=== PATIENT | female | born 1990 | race Caucasian/White ===

== ENCOUNTER → 2017-02-22 | Outpatient (CLI) | payer MEDICAID, OTHER ==
[~2017-02-22] MED LIST: ASPI81TA81; TUMS500C CHEW; ZANTTAB11; ZOFR4TAB PO
== END ==
LOC: HPND 13:55
PROVIDERS: ATTEND Obstetrics & Gynecology
DX: O09.291 Supervision of pregnancy with other poor reproductive or obstetric history, first trimester (principal); O09.211 Supervision of pregnancy with history of pre-term labor, first trimester
CPT/HCPCS: 76801

== ENCOUNTER → 2017-03-20 | Outpatient (CLI) | payer MEDICAID | LOC: HPND 09:29 | PROVIDERS: ATTEND Obstetrics & Gynecology | DX: O09.291 Supervision of pregnancy with other poor reproductive or obstetric history, first trimester (principal); O09.211 Supervision of pregnancy with history of pre-term labor, first trimester; O99.211 Obesity complicating pregnancy, first trimester | CPT/HCPCS: 36416; 76813 ==

== ENCOUNTER → 2017-04-25 | Outpatient (CLI) | payer MEDICAID | LOC: HPND 09:18 | PROVIDERS: ATTEND Obstetrics & Gynecology | DX: O09.522 Supervision of elderly multigravida, second trimester (principal); O09.292 Supervision of pregnancy with other poor reproductive or obstetric history, second trimester | CPT/HCPCS: 76811 ==

== ENCOUNTER 2017-04-30 11:27 | Emergency (ER) | payer MEDICAID ==
[~2017-04-30 11:27] MED LIST changes: -ASPI81TA81; -TUMS500C CHEW; -ZANTTAB11
[2017-04-30 11:38] VITALS: RESP 18; TEMP 98.1
[2017-04-30 11:40] VITALS: BP 114/57; PULSE 67
--- NOTE | 2017-04-30 11:46 | PD ---
HPI Chief Complaint Decreased movement. Date Seen: Apr 30, 2017 Travel History International Travel<30 Days: No Contact w/Intl Traveler<30Days: No History of Present Illness HPI Patient is a 26 year old at 19 weeks gestation who presents today for decreased movement. She has not been feeling the baby move as much today as usual. She denies any vaginal bleeding or discharge, no gush or leaking of fluid. No contractions. care with [facility]. History Past Medical History Medical History: Denies Significant Hx Obstetric History Obstetric History s/p x 2 1 full term 1 at 35 weeks gestation, severe preeclampsia 3 spontaneous abortions Past Surgical History Surgical History: No Previous Surgery Family History Family History: Negative Social History Alcohol Use: No Tobacco Use: No Substance Abuse: No Allergies-Medications (Allergen,Severity, Reaction): Coded Allergies: Sulfa (Verified Allergy, Severe, Hives, SOB, 04/03/17) "BREAK OUT, CANT BREATHE" Latex (Unverified Allergy, Mild, Rash, 04/03/17) Home Meds Active Scripts Ondansetron (Zofran)4 Mg Tab4 Mg PO Q8HR PRN (NAUSEA OR VOMITING) #30 TAB Ref 2 Prov:Rach Johnson 04/03/17 Review of Systems Except as stated in HPI: all other systems reviewed are Neg General / Constitutional: No: Fever, Chills Eyes: No: Blurred Vision, Visual changes HENT: No: Lightheadedness Respiratory: No: Short of Breath Gastrointestinal: No: Abdominal Pain Genitourinary: No: Pelvic Pain, Discharge, Vaginal Bleeding Musculoskeletal: No: Edema Neurologic: No: Headache Physical Exam Narrative GENERAL: Well-nourished, well-developed patient. SKIN: Warm and dry. HEAD: Normocephalic and atraumatic. EYES: No scleral icterus. No injection or drainage. ENT: No nasal drainage noted. Mucous membranes pink. Airway patent. NECK: Supple, trachea midline. No JVD. CARDIOVASCULAR: Regular rate and rhythm without murmurs, gallops, or rubs. RESPIRATORY: Breath sounds equal bilaterally. No accessory muscle use. BREASTS: Bilateral exam showed no masses , no retractions, no nipple discharge. ABDOMEN/GI: Abdomen soft, non-tender, bowel sounds present, no rebound, no guarding Gravid to 19 weeks size GENITOURINARY: FHT's: 140-150 EXTREMITIES: No cyanosis or edema. BACK: Nontender without obvious deformity. No CVA tenderness. NEUROLOGICAL: Awake and alert. Motor and sensory grossly within normal limits. Normal speech. Data Data Vital Signs Reviewed: Yes Orders Vital Signs (Adult) .ON ADMISSION (04/30/17 11:36) ^ Labor Status (04/30/17 11:36) MDM Medical Record Reviewed: Yes Narrative Course / MDM 26 year old at 19 weeks gestation. 1. IUP- FHT 140-150, reassuring. 2. Decreased movement- expected at this gestational age, counseling and education provided regarding expectations of movement at this gestational age. Bedside US shows movement, reassuring. dw Dr. Shaw Diagnosis Diagnosis: Primary Impression: Decreased movement Qualified Code: O36.8120 - Decreased movement, second trimester, not applicable or unspecified fetus Additional Impression: 19 weeks gestation of Disposition: DISCHARGE HOME Condition: Stable Kaya Adams MD R2 Apr 30, 2017 11:46
--- NOTE | 2017-04-30 12:08 | PD ---
History of Present Illness Date Seen: Apr 30, 2017 History of Present Illness 19 wks IUP with dec FM FHT --125 US- 19 wk IUP ,+ CM , nl AFV , ant placenta, baby active on scan Imp -normal fetus moving well , pt just not feeling it at times Bravo Shaw II, MD Apr 30, 2017 12:07
[2017-05-01] MEDS ORDERED: ZANTTAB11 (10:30)
[2017-05-01] MEDS ORDERED: ASPI81TA81 (10:30)
[2017-05-01] MEDS ORDERED: TUMS500C CHEW (10:30)
== END 2017-04-30 12:11 | disposition home or self-care (01) ==
LOC: HOBED 11:27
DX: O36.8120 Decreased fetal movements, second trimester, not applicable or unspecified (principal); Z3A.19 19 weeks gestation of pregnancy
CPT/HCPCS: 99281

== ENCOUNTER → 2017-05-25 | Outpatient (CLI) | payer MEDICAID ==
[~2017-05-25] MED LIST changes: +ASPI81TA81; +TUMS500C CHEW; +ZANTTAB11
== END ==
LOC: HPND 10:05
PROVIDERS: ATTEND Obstetrics & Gynecology
DX: O35.1XX0 Maternal care for (suspected) chromosomal abnormality in fetus, not applicable or unspecified (principal); O09.292 Supervision of pregnancy with other poor reproductive or obstetric history, second trimester; O99.212 Obesity complicating pregnancy, second trimester; E66.01 Morbid (severe) obesity due to excess calories; Z68.41 Body mass index [BMI] 40.0-44.9, adult
CPT/HCPCS: 76816

== ENCOUNTER 2017-06-10 13:54 | Emergency (ER) | payer MEDICAID ==
[~2017-06-10] VITALS: Ht 152.4 cm; Wt 97.5 kg
[2017-06-10 14:11] VITALS: BP 132/73; PULSE 95
[2017-06-10 14:15] VITALS: RESP 18
[2017-06-10] MEDS ORDERED: LACTATED RINGER'S 1000 ML INJ 1,000 ML IV SCH (14:27)
--- NOTE | 2017-06-10 14:34 | PD ---
HPI Chief Complaint ctx Date Seen: Jun 10, 2017 Time Seen: 14:25 Travel History International Travel<30 Days: No Contact w/Intl Traveler<30Days: No Known Affected Area: No History of Present Illness HPI 26y/o , IUP at 24.6 records reviewed. PNC complicated by h/o PTD, IOL for preeclampsia at 34w (records indicate 34-35w), h/o " labor" with prior but delivery after IOL; slightly elevated PTT-LA, Low NAMRATA-A Patient presents c/o onset of ctx this morning at 7:30-8am after waking up today. She reports ctx onset at about every 6 minutes when she started having them, now every 3-4 min at the time of presentation. She denies any LOF or VB. She reports good FM. There were no aggravating or alleviating factors and no attempted treatments. She reports the last she had intercourse was 4d ago. Para: 2 : 6 Miscarriage: 3 : 0 History Past Medical History Narrative Medical Preeclampsia Obstetric History Obstetric History FT x1 PTD x1 SAB x3 Past Surgical History Narrative Surgical Denies Family History Narrative Family History DM Social History Alcohol Use: No Tobacco Use: No Substance Abuse: No Allergies-Medications (Allergen,Severity, Reaction): Coded Allergies: Sulfa (Verified Allergy, Severe, Hives, SOB, 05/30/17) "BREAK OUT, CANT BREATHE" Latex (Unverified Allergy, Mild, Rash, 05/30/17) Home Meds Reported Medications Calcium Carbonate (Antacid) (Tums)500 Mg [id number] Mg CHEW QID PRN (HEARTBURN) Ref 0 05/01/17 Aspirin (Aspir-81)81 Mg Tabdr 05/01/17 Discontinued Reported Medications Ranitidine HCl (Zantac 75)75 Mg Tablet 05/01/17 Discontinued Scripts Ondansetron (Zofran)4 Mg Tab4 Mg PO Q8HR PRN (NAUSEA OR VOMITING) #30 TAB Ref 2 Prov:Rach Johnson 04/03/17 Review of Systems Except as stated in HPI: all other systems reviewed are Neg Gastrointestinal: Abdominal Pain (ROS negative except HPI) Physical Exam Narrative GENERAL: Well-nourished, well-developed patient. SKIN: Warm and dry. HEAD: Normocephalic and atraumatic. EYES: No scleral icterus. No injection or drainage. ENT: No nasal drainage noted. Mucous membranes pink. Airway patent. NECK: Supple, trachea midline. No JVD. CARDIOVASCULAR: Regular rate and rhythm without murmurs, gallops, or rubs. RESPIRATORY: Breath sounds equal bilaterally. No accessory muscle use. BREASTS: Bilateral exam showed no masses , no retractions, no nipple discharge. ABDOMEN/GI: Abdomen soft, non-tender, bowel sounds present, no rebound, no guarding Gravid GENITOURINARY: External Genitalia: intact and normal in appearance BUS glands: [nl] Cervix: [grossly normal, no cervical/vaginal masses, physiologic d/c, normal rugae] Dilatation: [closed] SVE remained closed/thick/high and 1420, 1620, and 1800 Effacement: [thick] Station: [high] Presentation: [posterior] Membranes: [intact] Uterine Contractions: [-] FHT's: Category: [1] Baseline: [145-150], reassuring and appropriate for gestational age EXTREMITIES: No cyanosis or edema. BACK: Nontender without obvious deformity. No CVA tenderness. NEUROLOGICAL: Awake and alert. Motor and sensory grossly within normal limits. Five out of 5 muscle strength in all muscle groups. Normal speech. ROM: grossly normal ROM, gait, muscle strength Data Data Vital Signs Reviewed: Yes MDM Plan A/P: 26y/o 1. IUP at 24.6 2. ctx: no evidence of PTL, CL 5.3cm and FFN negative; no cervical change management facilitator prolonged observation of nearly 4h and no change in CL since prior US at 23.6 (5.1cm). patient reports ctx have spaced out since arriving s/p IVF and terbutaline. Strict labor precautions given. 3. wellbeing: reassuring FHR, appropriate for gestational age, FKC daily. 4. h/o preeclampsia: no evidence of preeclampsia today, preeclampsia precautions 5. h/o PTD at 34-35w for preeclampsia 6. morbid obesity 7. Slightly elevated PTT-LA: continue baby ASA and 2g CA as previously recommended by [facility] 8. Low NAMRATA-A 9. F/U with primary ob in 2-3d or sooner if needed Diagnosis Diagnosis: Primary Impression: 24 weeks gestation of Additional Impressions: contractions labor in second trimester Disposition: 01 DISCHARGE HOME Condition: Good Patient Instructions: Abdominal Pain in (ED), Labor (ED), Early Labor Signs (ED), Movement (ED) Rach Delacruz MD Jun 10, 2017 14:34
[2017-06-10] MEDS ORDERED: TERBUTALINE INJ 1 MG/ML AMP ONE (14:55)
[2017-06-10 15:11] VITALS: TEMP 98.2
[2017-06-10 15:23] LABS: BACTERIA, URINE RARE /hpf; BLOOD, URINE NEG (NEG); COMMENT (UR) CULT NOT INDICATED; CULTURE IF INDICATED CULT NOT INDICATED; GLUCOSE,URINE NEG (NEG); KETONE, URINE 10 mg/dL (NEG); NITRITE,URINE NEG (NEG); SQUAMOUS EPITHELIAL CELL URINE 9 /hpf (0-5); URINE COLOR YELLOW (YELLW/STRAW)
[2017-06-10] MEDS ORDERED: TERBUTALINE INJ 1 MG/ML AMP SQ PRN ×3 (16:30→17:30)
[2017-06-29] MEDS ORDERED: AMOX500T PO (11:08)
== END 2017-06-10 18:26 | disposition home or self-care (01) ==
LOC: HOBED 13:54
DX: O60.02 Preterm labor without delivery, second trimester (principal); Z3A.24 24 weeks gestation of pregnancy
CPT/HCPCS: 76815; 76817; 81001; 82731; 96360; 96361; 96372; 99285; J3105; J7120

== ENCOUNTER → 2017-06-22 | Outpatient (CLI) | payer MEDICAID ==
[~2017-06-22] MED LIST changes: +AMOX500T PO; -ZANTTAB11; -ZOFR4TAB PO
== END ==
LOC: HPND 08:05
PROVIDERS: ATTEND Obstetrics & Gynecology
DX: O35.1XX0 Maternal care for (suspected) chromosomal abnormality in fetus, not applicable or unspecified (principal); O99.212 Obesity complicating pregnancy, second trimester; E66.01 Morbid (severe) obesity due to excess calories; Z68.1 Body mass index [BMI] 19.9 or less, adult; Z3A.26 26 weeks gestation of pregnancy
CPT/HCPCS: 76816

== ENCOUNTER 2017-06-27 14:10 | Emergency (ER) | payer MEDICAID ==
[~2017-06-27 14:10] MED LIST changes: -AMOX500T PO
--- NOTE | 2017-06-27 14:36 | PD ---
HPI Chief Complaint Abdominal pain/Nausea and vomiting Date Seen: Jun 27, 2017 Travel History International Travel<30 Days: No Contact w/Intl Traveler<30Days: No Known Affected Area: No History of Present Illness HPI at 27w 2d weeks presents via EMS with c/o lower abdominal pain beginning this morning. Patient also reports nausea and vomiting, emesis x 4. Denies urinary/bowel complaints. Denies ctxs/LOF/VB. Reports good movement. History Past Medical History Medical History: Denies Significant Hx Obstetric History Obstetric History FT x 2, 2 SABs Family History Family History: Negative Social History Alcohol Use: No Tobacco Use: No Substance Abuse: No Allergies-Medications (Allergen,Severity, Reaction): Coded Allergies: Sulfa (Verified Allergy, Severe, Hives, SOB, 05/30/17) "BREAK OUT, CANT BREATHE" Latex (Unverified Allergy, Mild, Rash, 05/30/17) Home Meds Reported Medications Calcium Carbonate (Antacid) (Tums)500 Mg [id number] Mg CHEW QID PRN (HEARTBURN) Ref 0 05/01/[address] (Aspir-81)81 Mg Tabdr 05/01/17 Physical Exam AFVSS BP 120/48 Repeat temp 98.5 Narrative GENERAL: Well-nourished, well-developed patient. SKIN: Warm and dry. HEAD: Normocephalic and atraumatic. EYES: No scleral icterus. No injection or drainage. ENT: No nasal drainage noted. Mucous membranes pink. Airway patent. NECK: Supple, trachea midline. No JVD. CARDIOVASCULAR: Regular rate and rhythm without murmurs, gallops, or rubs. RESPIRATORY: Breath sounds equal bilaterally. No accessory muscle use. BREASTS: Bilateral exam showed no masses , no retractions, no nipple discharge. ABDOMEN/GI: Abdomen soft, non-tender, bowel sounds present, no rebound, no guarding Gravid to [-] weeks size Fundal Height: [-] GENITOURINARY: External Genitalia: intact and normal in appearance BUS glands: [-] Cervix: [-] Dilatation: [0] Effacement: [20] Station: [3] Presentation: [-] Membranes: [intact or ruptured] Uterine Contractions: [none] FHT's: Category: [1] Baseline: [150s] Reactive: [reactive] Variability: [moderate] Decels: [none] EXTREMITIES: No cyanosis or edema. BACK: Nontender without obvious deformity. No CVA tenderness. NEUROLOGICAL: Awake and alert. Motor and sensory grossly within normal limits. Five out of 5 muscle strength in all muscle groups. Normal speech. MDM Interpretation(s) IUP at 27w 2d with abdominal pain, nausea and vomiting. Plan Will administer IVF, antiemetics, and pain medication. Will obtain BMP. IV Rocephin for UTI. Will monitor closely. After pain medication, patient resting well. Will d/c once tolerating po. Close f/u for urine culture d/w patient. All questions answered. Diagnosis Diagnosis: Primary Impression: 27 weeks gestation of Additional Impression: UTI (urinary tract infection) in in third trimester Disposition: 01 DISCHARGE HOME Julia Avila MD Jun 27, 2017 14:36
[2017-06-27] MEDS: LACTATED RINGER'S 1000 ML INJ 1,000 ML IV SCH ×2 (14:52→17:03)
[2017-06-27] MEDS ORDERED: ONDANSETRON HCL 4 MG/2 ML VIAL IV PUSH ONE (15:00)
[2017-06-27 15:07] LABS: BICARBONATE 22.4 MEQ/L (21.0-32.0); POTASSIUM 3.7 MEQ/L (3.5-5.1)
[2017-06-27 15:28] LABS: BACTERIA, URINE RARE /hpf; BLOOD, URINE NEG (NEG); COMMENT (UR) CULTURE INDICATED; CULTURE IF INDICATED CULTURE INDICATED; GLUCOSE,URINE NEG (NEG); KETONE, URINE 150 mg/dL (NEG); MUCUS URINE FEW /lpf (OCC); SQUAMOUS EPITHELIAL CELL URINE 2 /hpf (0-5); URINE COLOR YELLOW (YELLW/STRAW)
[2017-06-27 15:29] LABS: NITRITE,URINE POS (NEG)
[2017-06-27] MEDS ORDERED: cefTRIAXone INJ 1,000 MG in SODIUM CHLORIDE 0.9% INJ 100 ML IV ONE (17:00)
[2017-06-27] MEDS ORDERED: ACETAMINOPHEN 325 MG TAB PO ONE (18:00)
[2017-06-27] MEDS ORDERED: PROMETHAZINE INJ 25 MG/ML VIAL IM ONE (18:00)
[2017-06-27] MEDS ORDERED: MEPERIDINE HCL 25 MG/ML VIAL IM ONE (18:00)
[2017-06-29] MEDS ORDERED: AMOX500T PO (11:08)
[2017-07-17] MEDS ORDERED: ZITHTAB PO (13:53)
[2017-08-16] MEDS ORDERED: FERRTAB2 PO (11:52)
[2017-09-06] MEDS ORDERED: ONDA1TAB17 PO (11:20)
== END 2017-06-27 20:56 | disposition home or self-care (01) ==
LOC: HOBED 14:10
DX: O23.42 Unspecified infection of urinary tract in pregnancy, second trimester (principal); Z3A.27 27 weeks gestation of pregnancy; Z79.82 Long term (current) use of aspirin
CPT/HCPCS: 36415; 80048; 81001; 87077; 87086; 87186; 96365; 96372; 96375; 99284; J0696; J2175; J2405; J2550; J7120

== ENCOUNTER → 2017-07-20 | Outpatient (CLI) | payer MEDICAID ==
[~2017-07-20] MED LIST changes: +FERRTAB2 PO; +ONDA1TAB17 PO; +ZITHTAB PO
== END ==
LOC: HPND 08:39
PROVIDERS: ATTEND Obstetrics & Gynecology
DX: O35.1XX0 Maternal care for (suspected) chromosomal abnormality in fetus, not applicable or unspecified (principal); O99.213 Obesity complicating pregnancy, third trimester; E66.01 Morbid (severe) obesity due to excess calories
CPT/HCPCS: 76816

== ENCOUNTER 2017-07-31 23:44 | Emergency (ER) | payer MEDICAID ==
[~2017-07-31] VITALS: Ht 157.5 cm; Wt 99.8 kg
[~2017-07-31 23:44] MED LIST changes: -FERRTAB2 PO; -ONDA1TAB17 PO
[2017-08-01] VITALS (20 sets, daily range): PULSE 84–117; O2SAT 96–100
--- NOTE | 2017-08-01 00:44 | PD ---
HPI Chief Complaint Contractions and possibly leaking fluid Date Seen: Aug 01, 2017 Time Seen: 00:30 Travel History International Travel<30 Days: No Contact w/Intl Traveler<30Days: No Known Affected Area: No History of Present Illness HPI Patient is 26-year-old white female 32 weeks presents combining of contractions and possibly leaking fluid. [facility]. Patient's amnio sure is negative tonight., She is no bleeding but is narinder every 3-5 minutes Weeks Gestation: 32 Para: 2 : 5 History Past Medical History Narrative Medical Diagnosed with lupus 2 weeks ago Obstetric History Obstetric History She was delivered at 34 weeks due to preeclampsia she was induced for that disease with one of her pregnancies Social History Alcohol Use: No Tobacco Use: No Substance Abuse: No Allergies-Medications (Allergen,Severity, Reaction): Coded Allergies: Sulfa (Sulfonamide Antibiotics) (Unverified Allergy, Severe, Hives, SOB, ) "BREAK OUT, CANT BREATHE" latex (Unverified Allergy, Mild, Rash, 07/17/17) Home Meds Active Scripts Azithromycin (Zithromax Z-Cameron) 250 Mg Dspk, 250 MG PO DIRECTED for Infection , #1 DSPK 0 Refills 500 MG (2 tabs) day 1, then 1 tab days 2-5. Prov:Rach Johnson 07/17/17 Reported Medications Calcium Carbonate (Antacid) (Tums) 500 Mg Chew, 500 MG CHEW QID Y for HEARTBURN , TAB 0 Refills 05/01/[address] (Aspir-81) 81 Mg Tabdr 05/01/17 Review of Systems General / Constitutional: No: Fever, Weight Gain, Chills, Other Eyes: No: Diploplia, Blurred Vision, Visual changes, Pain, Photophobia HENT: No: Headaches, Vertigo, Lightheadedness Cardiovascular: No: Irregular Rhythm, Chest Pain or Discomfort, Palpitations, Tachycardia, Syncope, Varicosities, Edema, Cyanosis Respiratory: No: Cough, Short of Breath, Other Gastrointestinal: Abdominal Pain, No: Nausea, Vomiting, Diarrhea Genitourinary: No: Decreased Urinary Output, Oliguria Musculoskeletal: No: Limited ROM, Weakness, Cramping, Edema, Pain Skin: No Rash, No Itching, No Dryness, No Lumps, No Change in Pigmentation, No Change in Nails, No Alopecia, No Lesions Neurologic: No: Weakness, Dizziness, Syncope, Focal Abnormalities, Coordination Problem, Headache, Slurred Speech, Seizures Psychiatric: No: Depression, Suicidal Ideations, Homicidal Ideation Endocrine: No: Heat Intolerance, Cold Intolerance, Polydipsia, Polyuria, Other Physical Exam Narrative GENERAL: Well-nourished, well-developed patient. SKIN: Warm and dry. HEAD: Normocephalic and atraumatic. EYES: No scleral icterus. No injection or drainage. ENT: No nasal drainage noted. Mucous membranes pink. Airway patent. NECK: Supple, trachea midline. No JVD. CARDIOVASCULAR: Regular rate and rhythm without murmurs, gallops, or rubs. RESPIRATORY: Breath sounds equal bilaterally. No accessory muscle use. BREASTS: Bilateral exam showed no masses , no retractions, no nipple discharge. ABDOMEN/GI: Abdomen soft, non-tender, bowel sounds present, no rebound, no guarding Gravid to [-32] weeks size Fundal Height: [32-] GENITOURINARY: External Genitalia: intact and normal in appearance FFN done and pending Cervix: [Posterior-] Dilatation: [-Closed] Effacement: [-] Thick Station: [-3] Membranes: [intact ] amnio sure negative Uterine Contractions: [Every 3-5 minutes-] FHT's: Category: [1-] Baseline: [133-] Reactive: [-yes] Variability: [mod-] Decels: [none-] EXTREMITIES: No cyanosis or edema. BACK: Nontender without obvious deformity. No CVA tenderness. NEUROLOGICAL: Awake and alert. Motor and sensory grossly within normal limits. Five out of 5 muscle strength in all muscle groups. Normal speech. Data Data Orders Orders Vital Signs (Adult) .ON ADMISSION (08/01/17 00:36) ^ Labor Status (08/01/17 00:36) Fibronectin (08/01/17 00:36) Lactated Ringer's 1000 Ml Inj (Lr 1000 M (08/01/17 00:36) Terbutaline Inj (Brethine Inj) (08/01/17 00:45) Fentanyl Inj (Fentanyl Inj) (08/01/17 00:45) Labs Amnio sure negative Urine dipstick positive moderate leukocyte esterase FFN negative MDM Interpretation(s) Patient is 26-year-old white female 32 weeks presents with contractions and possibly leaking fluid. Amnio sure is negative tonight. No vaginal bleeding. The contractions are noted every 3-5 minutes. fibronectin done and negative and has a history of delivering early at 34 weeks. She was induced for preeclampsia she has no true intrinsic labor history Plan Plan is IV fluid, terbutaline subcutaneous, IV fentanyl for tocolyse as initially. Urinalysis confirms UTI we'll treat with a dose of IV medication here while we have IV access home with a prescription for that for UTI , FFN neg Diagnosis Diagnosis: Primary Impression: Threatened labor, antepartum Disposition: DISCHARGE HOME Condition: Stable Bravo Shaw II, MD Aug 01, 2017 00:44
[2017-08-01] MEDS ORDERED: TERBUTALINE INJ 1 MG/ML AMP SQ PRN (00:45)
[2017-08-01] MEDS ORDERED: LACTATED RINGER'S 1000 ML INJ 1,000 ML IV SCH (01:00)
[2017-08-01 02:06] LABS: BLOOD, URINE NEG (NEG); COMMENT (UR) CULT NOT INDICATED; CULTURE IF INDICATED CULT NOT INDICATED; GLUCOSE,URINE NEG (NEG); KETONE, URINE 150 mg/dL (NEG); MUCUS URINE FEW /lpf (OCC); NITRITE,URINE NEG (NEG); PH, URINE 6.5 (5.0-8.5); SQUAMOUS EPITHELIAL CELL URINE 6 /hpf (0-5); URINE COLOR YELLOW (YELLW/STRAW)
[2017-08-16] MEDS ORDERED: FERRTAB2 PO (11:52)
[2017-09-06] MEDS ORDERED: ONDA1TAB17 PO (11:20)
== END 2017-08-01 03:00 | disposition home or self-care (01) ==
LOC: HOBED 23:44
DX: Z03.71 Encounter for suspected problem with amniotic cavity and membrane ruled out (principal); O47.03 False labor before 37 completed weeks of gestation, third trimester; Z3A.32 32 weeks gestation of pregnancy
CPT/HCPCS: 81001; 82731; 84112; 96361; 96372; 96374; 99284; J3010; J3105; J7120

== ENCOUNTER 2017-08-06 12:31 | Emergency (ER) | payer MEDICAID ==
[~2017-08-06 12:31] MED LIST changes: -ASPI81TA81; -ZITHTAB PO
--- NOTE | 2017-08-06 12:56 | PD ---
HPI Chief Complaint Decreased movement, vaginal pressure Date Seen: Aug 06, 2017 Travel History International Travel<30 Days: No Contact w/Intl Traveler<30Days: No History of Present Illness HPI Mrs. Vines is a 26 y/o at 33/0 weeks gestation presenting to the OB ED with decreased movement and contractions. She states that around 0630 this morning she started feeling contractions every 1-2 minutes. At that time she also noticed her baby was not as active as her baseline. Having to the OB ED she endorses good movement and denies any loss of fluid, vaginal bleeding, or dysuria. She endorses increased vaginal discharge over the last 1- 2 weeks and was evaluated at the [facility] without treatment per patient. Otherwise she has no complaints and denies a complete review of systems. Weeks Gestation: 33 Para: 6 : 2 History Past Medical History Narrative Medical Lupus, not confirmed will retest after per patient Obstetric History Obstetric History First - at 38 weeks, uncomplicated Second - miscarriage at less than 10 weeks gestation Third - at 35 weeks with preeclampsia Fourth - miscarriage at less than 10 weeks gestation Fifth - PIH with ASA and followed by MFM, otherwise uncomplicated Past Surgical History Surgical History: No Previous Surgery Family History Narrative Family History DM, Lupus, and unknown malignancy per patient Social History Narrative Social History Patient endorses no alcohol or tobacco use term . Patient endorses marijuana use early in for nausea/vomiting, no recent use. Allergies-Medications (Allergen,Severity, Reaction): Coded Allergies: Sulfa (Sulfonamide Antibiotics) (Unverified Allergy, Severe, Hives, SOB, ) "BREAK OUT, CANT BREATHE" latex (Unverified Allergy, Mild, Rash, 08/02/17) Home Meds Reported Medications Calcium Carbonate (Antacid) (Tums) 500 Mg Chew, 500 MG CHEW QID Y for HEARTBURN , TAB 0 Refills 05/01/17 Discontinued Reported Medications Aspirin DR (Aspir-81) 81 Mg Tabdr 05/01/17 Discontinued Scripts Azithromycin (Zithromax Z-Cameron) 250 Mg Dspk, 250 MG PO DIRECTED for Infection , #1 DSPK 0 Refills 500 MG (2 tabs) day 1, then 1 tab days 2-5. Prov:Rach Johnson 07/17/17 Review of Systems Except as stated in HPI: all other systems reviewed are Neg Physical Exam Narrative GENERAL: Well-nourished, well-developed patient. SKIN: Warm and dry. HEAD: Normocephalic and atraumatic. EYES: No scleral icterus. No injection or drainage. ENT: No nasal drainage noted. Mucous membranes pink. Airway patent. NECK: Supple, trachea midline. No JVD. CARDIOVASCULAR: Regular rate and rhythm without murmurs, gallops, or rubs. RESPIRATORY: Breath sounds equal bilaterally. No accessory muscle use. ABDOMEN/GI: Abdomen soft, non-tender, bowel sounds present, no rebound, no guarding Gravid to 33 GENITOURINARY: External Genitalia: intact and normal in appearance Cervix: Posterior Dilatation: Closed Effacement: 0% Station: -3 Membranes: Intact Uterine Contractions: Every 3 to 5 minutes FHT's: Category: 1 Baseline: 140s Reactive: Positive Variability: Moderate Decels: None EXTREMITIES: No cyanosis or edema. BACK: Nontender without obvious deformity. No CVA tenderness. NEUROLOGICAL: Awake and alert. Motor and sensory grossly within normal limits. Five out of 5 muscle strength in all muscle groups. Normal speech. Data Data Vital Signs Reviewed: Yes [facility] Medical Record Reviewed: Yes Plan Mrs. Vines is a 26 y/o at 33/0 weeks gestation presenting to the OB ED with decreased movement and contractions. 1. IUP at 33 weeks -Continue routine antepartum care -Continue vitamin -Encourage oral hydration 2. Decreased movement with contractions -FHT category 1, reassuring -Patient endorses movement since being admitted to the OB ED - fibronectin: Pending SDW: Dr. Elliott Update: fibronectin negative, no indication for steroid treatment at this time. UA negative. Patient endorses good movement and is without complaint. Patient to be discharged home with OBGYN follow up. Diagnosis Diagnosis: Primary Impression: 33 weeks gestation of Additional Impression: Decreased movement Disposition: 01 DISCHARGE HOME Condition: Stable Patient Instructions: General Instructions, Movement (ED), Abdominal Pain in (ED), Having Your Baby: The Labor Process (GEN) Rayshawn Matos MD R2 Aug 06, 2017 12:56
[2017-08-06 14:03] LABS: BLOOD, URINE NEG (NEG); GLUCOSE,URINE NEG (NEG); KETONE, URINE NEG (NEG); NITRITE,URINE NEG (NEG); PH, URINE 7.5 (5.0-8.5); SQUAMOUS EPITHELIAL CELL URINE 3 /hpf (0-5); TRANSITIONAL EPI CELLS, URINE <1 /hpf; URINE COLOR YELLOW (YELLW/STRAW)
[2017-08-06 14:05] LABS: COMMENT (UR) CULT NOT INDICATED; CULTURE IF INDICATED CULT NOT INDICATED
[2017-08-16] MEDS ORDERED: FERRTAB2 PO (11:52)
[2017-09-06] MEDS ORDERED: ONDA1TAB17 PO (11:20)
== END 2017-08-06 14:40 | disposition home or self-care (01) ==
LOC: HOBED 12:31
DX: O36.8130 Decreased fetal movements, third trimester, not applicable or unspecified (principal); Z3A.33 33 weeks gestation of pregnancy
CPT/HCPCS: 59025; 81001; 82731; 84112

== ENCOUNTER 2017-08-19 17:08 | Emergency (ER) | payer MEDICAID ==
[~2017-08-19] VITALS: Ht 152.4 cm; Wt 101.2 kg
[~2017-08-19 17:08] MED LIST changes: +FERRTAB2 PO
[2017-08-19 17:30] VITALS: RESP 20; TEMP 98.1
--- NOTE | 2017-08-19 17:55 | PD ---
HPI Chief Complaint Contractions Date Seen: Aug 19, 2017 Time Seen: 17:50 Travel History International Travel<30 Days: No Contact w/Intl Traveler<30Days: No Known Affected Area: No History of Present Illness HPI The patient is 26-year-old white female 35 weeks tomorrow presents complaining of contractions. Denies bleeding or leakage of fluid. heart rate tracing is reactive and she is narinder every 2 minutes. [facility] and was checked in the office this week and was 2 cm and 50% Weeks Gestation: 35 Para: 2 : 5 Miscarriage: 2 History Obstetric History Obstetric History 2 vaginal deliveries, 2 early losses, and one of her deliveries was a delivery Social History Alcohol Use: No Tobacco Use: No Substance Abuse: No Allergies-Medications (Allergen,Severity, Reaction): Coded Allergies: Sulfa (Sulfonamide Antibiotics) (Unverified Allergy, Severe, Hives, SOB, ) "BREAK OUT, CANT BREATHE" latex (Unverified Allergy, Mild, Rash, 08/16/17) Home Meds Active Scripts Multi-Vit/Iron-Folic Dsjy-S13-Rpi C (Ferralet) 90-1-0.012-120 mg Tab, 1 CAPLET PO DAILY for 30 Days, #30 CAPLET 2 Refills Prov:Briseida Gabriel 08/16/17 Reported Medications Calcium Carbonate (Antacid) (Tums) 500 Mg Chew, 500 MG CHEW QID Y for HEARTBURN , TAB 0 Refills 05/01/17 Review of Systems General / Constitutional: No: Fever, Weight Gain, Chills, Other Eyes: No: Diploplia, Blurred Vision, Visual changes, Pain, Photophobia HENT: No: Headaches, Vertigo, Lightheadedness Cardiovascular: No: Irregular Rhythm, Chest Pain or Discomfort, Palpitations, Tachycardia, Syncope, Varicosities, Edema, Cyanosis Respiratory: No: Cough, Short of Breath, Other Gastrointestinal: No: Nausea, Vomiting, Diarrhea Genitourinary: No: Decreased Urinary Output, Oliguria Musculoskeletal: No: Limited ROM, Weakness, Cramping, Edema, Pain Skin: No Rash, No Itching, No Dryness, No Lumps, No Change in Pigmentation, No Change in Nails, No Alopecia, No Lesions Neurologic: No: Weakness, Dizziness, Syncope, Focal Abnormalities, Coordination Problem, Headache, Slurred Speech, Seizures Psychiatric: No: Depression, Suicidal Ideations, Homicidal Ideation Endocrine: No: Heat Intolerance, Cold Intolerance, Polydipsia, Polyuria, Other Physical Exam Narrative GENERAL: Well-nourished, well-developed obese patient. SKIN: Warm and dry. HEAD: Normocephalic and atraumatic. EYES: No scleral icterus. No injection or drainage. ENT: No nasal drainage noted. Mucous membranes pink. Airway patent. NECK: Supple, trachea midline. No JVD. CARDIOVASCULAR: Regular rate and rhythm without murmurs, gallops, or rubs. RESPIRATORY: Breath sounds equal bilaterally. No accessory muscle use. BREASTS: Bilateral exam showed no masses , no retractions, no nipple discharge. ABDOMEN/GI: Abdomen soft, non-tender, bowel sounds present, no rebound, no guarding Gravid to [35-] weeks size Fundal Height: [35-] GENITOURINARY: External Genitalia: intact and normal in appearance BUS glands: [-] Cervix: [-post] Dilatation: [2-] Effacement: [-50] Station: [-3] Presentation: [-vtx] Membranes: [intact ] Uterine Contractions: [-q 2 min] FHT's: Category: [-1] Baseline: [133-] Reactive: [yes-] Variability: [mod-] Decels: [none-] EXTREMITIES: No cyanosis or edema. BACK: Nontender without obvious deformity. No CVA tenderness. NEUROLOGICAL: Awake and alert. Motor and sensory grossly within normal limits. Five out of 5 muscle strength in all muscle groups. Normal speech. Data Data Labs Urine dipstick negative except for ketones MDM Interpretation(s) Is a 26-year-old white female A2 at 35 weeks tomorrow who presents planning contractions. [facility], she is narinder every 2-3 minutes initially, cervix is 2 cm 50% here and the same as her exam earlier this week. Planned IV hydrate, IV fentanyl, subcutaneous terbutaline office for tocolyse the contractions she has. She is far enough along being 35 weeks and tomorrow. Would not go to higher level tocolytic therapy in this case Plan Plan to treat the patient's contractions with IV fluid of fentanyl and terbutaline, be discharged home on by mouth Tylenol increase her liquid fluids heating pad or hot bath for pain and return if contractions get worse or 4 breaks or bleeding Diagnosis Diagnosis: Primary Impression: Threatened premature labor in third trimester Disposition: 01 DISCHARGE HOME Condition: Stable Bravo Shaw II, MD Aug 19, 2017 17:55
[2017-08-19] MEDS ORDERED: LACTATED RINGER'S 1000 ML INJ 1,000 ML IV SCH (18:01)
[2017-08-19] MEDS ORDERED: ONDANSETRON HCL 4 MG/2 ML VIAL IV PUSH ONE (18:15)
[2017-08-19] MEDS ORDERED: TERBUTALINE INJ 1 MG/ML AMP SQ PRN (18:15)
[2017-09-06] MEDS ORDERED: ONDA1TAB17 PO (11:20)
== END 2017-08-19 19:27 | disposition home or self-care (01) ==
LOC: HOBED 17:08
DX: O60.03 Preterm labor without delivery, third trimester (principal); Z3A.35 35 weeks gestation of pregnancy
CPT/HCPCS: 96361; 96372; 96374; 99284; J3010; J3105; J7120

== ENCOUNTER 2017-08-23 17:54 | Emergency (ER) | payer MEDICAID ==
[~2017-08-23] VITALS: Ht 157.5 cm; Wt 102.1 kg
--- NOTE | 2017-08-23 19:09 | PD ---
HPI Chief Complaint Contraction pain Date Seen: Aug 23, 2017 Time Seen: 19:00 Travel History International Travel<30 Days: No Contact w/Intl Traveler<30Days: No Known Affected Area: No History of Present Illness HPI Patient's 26-year-old white female now 35-36 weeks [facility] presents complaining of contraction pain denies bleeding or rupture the membranes. Tracing is reactive and she is narinder every 2-3 minutes Weeks Gestation: 35 Para: 2 : 5 Last Menstrual Period: Aug 23, 2017 Miscarriage: 2 History Obstetric History Obstetric History 2 vaginal deliveries 2 early losses Social History Alcohol Use: No Tobacco Use: No Substance Abuse: No Allergies-Medications (Allergen,Severity, Reaction): Coded Allergies: Sulfa (Sulfonamide Antibiotics) (Verified Allergy, Severe, Hives, SOB, 08/23/17) "BREAK OUT, CANT BREATHE" latex (Verified Allergy, Mild, Rash, 08/23/17) Home Meds Reported Medications Calcium Carbonate (Antacid) (Tums) 500 Mg Chew, 500 MG CHEW QID Y for HEARTBURN , TAB 0 Refills 05/01/17 Discontinued Scripts Multi-Vit/Iron-Folic Sxox-S75-Kip C (Ferralet) 90-1-0.012-120 mg Tab, 1 CAPLET PO DAILY for 30 Days, #30 CAPLET 2 Refills Prov:Briseida Gabriel 08/16/17 Review of Systems General / Constitutional: No: Fever, Weight Gain, Chills, Other Eyes: No: Diploplia, Blurred Vision, Visual changes, Pain, Photophobia HENT: No: Headaches, Vertigo, Lightheadedness Cardiovascular: No: Irregular Rhythm, Chest Pain or Discomfort, Palpitations, Tachycardia, Syncope, Varicosities, Edema, Cyanosis Respiratory: No: Cough, Short of Breath, Other Gastrointestinal: Abdominal Pain, No: Nausea, Vomiting, Diarrhea Genitourinary: No: Decreased Urinary Output, Oliguria Musculoskeletal: No: Limited ROM, Weakness, Cramping, Edema, Pain Skin: No Rash, No Itching, No Dryness, No Lumps, No Change in Pigmentation, No Change in Nails, No Alopecia, No Lesions Neurologic: No: Weakness, Dizziness, Syncope, Focal Abnormalities, Coordination Problem, Headache, Slurred Speech, Seizures Psychiatric: No: Depression, Suicidal Ideations, Homicidal Ideation Endocrine: No: Heat Intolerance, Cold Intolerance, Polydipsia, Polyuria, Other Physical Exam Narrative GENERAL: Well-nourished, well-developed patient. SKIN: Warm and dry. HEAD: Normocephalic and atraumatic. EYES: No scleral icterus. No injection or drainage. ENT: No nasal drainage noted. Mucous membranes pink. Airway patent. NECK: Supple, trachea midline. No JVD. CARDIOVASCULAR: Regular rate and rhythm without murmurs, gallops, or rubs. RESPIRATORY: Breath sounds equal bilaterally. No accessory muscle use. BREASTS: Bilateral exam showed no masses , no retractions, no nipple discharge. ABDOMEN/GI: Abdomen soft, non-tender, bowel sounds present, no rebound, no guarding Gravid to [-35] weeks size Fundal Height: [-35] GENITOURINARY: External Genitalia: intact and normal in appearance BUS glands: [-] Cervix: [-Posterior] Dilatation: [-2] Effacement: [60-] Station: [-2] Presentation: [vtx-] Membranes: [intact ] Uterine Contractions: [Every 2-3 minutes-] FHT's: Category: [1-] Baseline: [-133] Reactive: [-yes] Variability: [mod-] Decels: [0-] EXTREMITIES: No cyanosis or edema. BACK: Nontender without obvious deformity. No CVA tenderness. NEUROLOGICAL: Awake and alert. Motor and sensory grossly within normal limits. Five out of 5 muscle strength in all muscle groups. Normal speech. MDM Interpretation(s) Patient 26-year-old white female 35-36 weeks presents planning contractions. She is narinder every 2-3 minutes however cervix is unchanged still 260 and -2 and is been that for several weeks. She is Here several times with the same thing was repeated result. Tracing is reactive she is narinder as mentioned above. Plan Plan to give the patient fentanyl IM 50 g and DC home to bedrest, use Tylenol liberally, heating pad, hot bath, and bedrest , push by mouth fluids as well Diagnosis Diagnosis: Primary Impression: False labor before 37 completed weeks of gestation in third trimester Disposition: 01 DISCHARGE HOME Condition: Stable Bravo Shaw II, MD Aug 23, 2017 19:09
[2017-09-06] MEDS ORDERED: ONDA1TAB17 PO (11:20)
== END 2017-08-23 19:56 | disposition home or self-care (01) ==
LOC: HOBED 17:54
DX: O47.03 False labor before 37 completed weeks of gestation, third trimester (principal); Z3A.35 35 weeks gestation of pregnancy
CPT/HCPCS: 96372; 99284; J3010

== ENCOUNTER 2017-08-27 21:31 | Emergency (ER) | payer MEDICAID ==
[~2017-08-27 21:31] MED LIST changes: -FERRTAB2 PO
--- NOTE | 2017-08-27 22:32 | PD ---
HPI Chief Complaint Contractions Date Seen: Aug 27, 2017 Time Seen: 22:15 Travel History International Travel<30 Days: No Contact w/Intl Traveler<30Days: No Known Affected Area: No History of Present Illness HPI Patient is 26-year-old white female at 36 weeks presents complaining of possible leaking fluid and contractions. amnisure is negative tonight, there is no bleeding, she is narinder every 2-3 minutes with a reactive NST Weeks Gestation: 36 Para: 2 : 5 Miscarriage: 2 History Obstetric History Obstetric History 2 vaginal deliveries, 2 losses early Social History Alcohol Use: No Tobacco Use: No Substance Abuse: No Allergies-Medications (Allergen,Severity, Reaction): Coded Allergies: Sulfa (Sulfonamide Antibiotics) (Verified Allergy, Severe, Hives, SOB, 08/23/17) "BREAK OUT, CANT BREATHE" latex (Verified Allergy, Mild, Rash, 08/23/17) Home Meds Reported Medications Calcium Carbonate (Antacid) (Tums) 500 Mg Chew, 500 MG CHEW QID Y for HEARTBURN , TAB 0 Refills 05/01/17 Discontinued Scripts Multi-Vit/Iron-Folic Xjiw-F50-Dbh C (Ferralet) 90-1-0.012-120 mg Tab, 1 CAPLET PO DAILY for 30 Days, #30 CAPLET 2 Refills Prov:Briseida Gabriel 08/16/17 Review of Systems General / Constitutional: No: Fever, Weight Gain, Chills, Other Eyes: No: Diploplia, Blurred Vision, Visual changes, Pain, Photophobia HENT: No: Headaches, Vertigo, Lightheadedness Cardiovascular: No: Irregular Rhythm, Chest Pain or Discomfort, Palpitations, Tachycardia, Syncope, Varicosities, Edema, Cyanosis Respiratory: No: Cough, Short of Breath, Other Gastrointestinal: No: Nausea, Vomiting, Diarrhea Genitourinary: No: Decreased Urinary Output, Oliguria Musculoskeletal: No: Limited ROM, Weakness, Cramping, Edema, Pain Skin: No Rash, No Itching, No Dryness, No Lumps, No Change in Pigmentation, No Change in Nails, No Alopecia, No Lesions Neurologic: No: Weakness, Dizziness, Syncope, Focal Abnormalities, Coordination Problem, Headache, Slurred Speech, Seizures Psychiatric: No: Depression, Suicidal Ideations, Homicidal Ideation Endocrine: No: Heat Intolerance, Cold Intolerance, Polydipsia, Polyuria, Other Physical Exam Narrative GENERAL: Well-nourished, well-developed patient. SKIN: Warm and dry. HEAD: Normocephalic and atraumatic. EYES: No scleral icterus. No injection or drainage. ENT: No nasal drainage noted. Mucous membranes pink. Airway patent. NECK: Supple, trachea midline. No JVD. CARDIOVASCULAR: Regular rate and rhythm without murmurs, gallops, or rubs. RESPIRATORY: Breath sounds equal bilaterally. No accessory muscle use. BREASTS: Bilateral exam showed no masses , no retractions, no nipple discharge. ABDOMEN/GI: Abdomen soft, non-tender, bowel sounds present, no rebound, no guarding Gravid to [36-] weeks size Fundal Height: [36-] GENITOURINARY: External Genitalia: intact and normal in appearance BUS glands: [-] Cervix: [-] Dilatation: [-2-3] Effacement: [-60] Station: [-3] Presentation: [vtx-] Membranes: [intact ] Uterine Contractions: [q 3 min-] FHT's: Category: [1-] Baseline: [-133] Reactive: [-yes] Variability: [mod-] Decels: [-0] EXTREMITIES: No cyanosis or edema. BACK: Nontender without obvious deformity. No CVA tenderness. NEUROLOGICAL: Awake and alert. Motor and sensory grossly within normal limits. Five out of 5 muscle strength in all muscle groups. Normal speech. Data Data Labs amnisure neg MDM Interpretation(s) This patient is 26-year-old white female at 36 weeks [facility] who is the presenting with contractions possibly leaking fluid. Her amnio sure is negative tonight. She is narinder every 3-4 minutes and she says her uncomfortable but her cervix is not changed to is still 2-360% that 's been that way for weeks she's appear to 3 times a week to be checked Plan Plan to discharge home tonight to home bedrest, by mouth fluid intake for hydration, Tylenol as needed. Also can use a heating pad or hot bath to relieve symptoms. She is to follow-up with her OB provider or return here for increasing pain bleeding or leakage Diagnosis Diagnosis: Primary Impression: False labor before 37 completed weeks of gestation during in third trimester, antepartum Additional Impression: No leakage of amniotic fluid into vagina Disposition: 01 DISCHARGE HOME Condition: Stable Patient Instructions: General Instructions, Having Your Baby: The Labor Process (GEN) Departure Forms: Tests/Procedures Bravo Shaw II, MD Aug 27, 2017 22:32
[2017-09-06] MEDS ORDERED: ONDA1TAB17 PO (11:20)
== END 2017-08-27 22:35 | disposition home or self-care (01) ==
LOC: HOBED 21:31
DX: O47.03 False labor before 37 completed weeks of gestation, third trimester (principal); Z3A.36 36 weeks gestation of pregnancy
CPT/HCPCS: 59025

== ENCOUNTER 2017-08-30 10:14 | Emergency (ER) | payer MEDICAID ==
[~2017-08-30 10:14] MED LIST changes: +FERRTAB2 PO
[2017-08-30 11:35] VITALS: BP 144/80; PULSE 78
[2017-08-30] MEDS ORDERED: LACTATED RINGER'S 1000 ML INJ 1,000 ML IV ONE (11:45)
--- NOTE | 2017-08-30 12:05 | PD ---
HPI Chief Complaint painful contractions Travel History International Travel<30 Days: No Contact w/Intl Traveler<30Days: No Known Affected Area: No History of Present Illness HPI Patient is a 26 y/o @ 36/2 weeks who presents to OB [facility] for painful contractions. States cxns are occurring every minute since last night. Feels her cxns have been starting regularly since Sunday. Endorses some vaginal bleeding with wiping 1x. Denies leakage of fluid. +FM. Last BPP 08/28 score on 08/28. No complications or STDs. States she has lupus diagnosed during but has not been treated. Weeks Gestation: 36 Para: 2 : 6 Miscarriage: 3 History Past Medical History Narrative Medical no documented lupus or lupus related + testing Medical History: Denies Significant Hx Obstetric History Obstetric History 2011 vaginal delivery, @35 weeks - 6lb9oz 2015 vaginal delivery, term @38 wks - 7lb9oz 3 Miscarriages @9, 6, and 6 weeks Past Surgical History Narrative Surgical Surgery in 2010 on knee Social History Alcohol Use: No Tobacco Use: No Substance Abuse: No Allergies-Medications (Allergen,Severity, Reaction): Coded Allergies: Sulfa (Sulfonamide Antibiotics) (Verified Allergy, Severe, Hives, SOB, 09/04) "BREAK OUT, CANT BREATHE" latex (Verified Allergy, Mild, Rash, 08/28/17) Home Meds Reported Medications Calcium Carbonate (Antacid) (Tums) 500 Mg Chew, 500 MG CHEW QID Y for HEARTBURN , TAB 0 Refills 05/01/17 Discontinued Scripts Multi-Vit/Iron-Folic Bycq-T77-Ced C (Ferralet) 90-1-0.012-120 mg Tab, 1 CAPLET PO DAILY for 30 Days, #30 CAPLET 2 Refills Prov:Briseida GabrielIndia BUSINESS DEVELOPMENT ENGINEER 08/16/17 Physical Exam Narrative GENERAL: Well-nourished, well-developed patient. SKIN: Warm and dry. HEAD: Normocephalic and atraumatic. EYES: No scleral icterus. No injection or drainage. ENT: No nasal drainage noted. Mucous membranes pink. Airway patent. NECK: Supple, trachea midline. No JVD. CARDIOVASCULAR: Regular rate and rhythm without murmurs, gallops, or rubs. RESPIRATORY: Breath sounds equal bilaterally. No accessory muscle use. ABDOMEN/GI: Abdomen soft, non-tender, bowel sounds present, no rebound, no guarding Gravid to 36 weeks size GENITOURINARY: External Genitalia: intact and normal in appearance Cervix: posterior Dilatation: 2-3 Effacement: 50 Station: -2 Presentation: vertex Membranes: [intact or ruptured] Uterine Contractions: [-] FHT's: Category: 1 Baseline: 135 Reactive: yes Variability: mod Decels: none EXTREMITIES: No cyanosis or edema. NEUROLOGICAL: Awake and alert. Motor and sensory grossly within normal limits. Five out of 5 muscle strength in all muscle groups. Normal speech. MDM Interpretation(s) Patient is 26 y/o F @ 36 weeks who endorses painful contractions. Is 2/50/- 2, FHT categ 1 and reassuring. Patient would like to stay to be induced. It has been explained to patient that induction cannot occur before 37 weeks. Plan 1. @36 weeks - not in labor - will not induce 2. Elevated BP - 144/80 - will give fluid bolus and monitor vitals 3. Pre-eclampsia hx - Per records from [facility], patient had a hx of preeclampsia which led to pre-term delivery @35 weeks. In the course of her care, she has had monitoring of blood pressures and CBC,CMP, and uric pertaining to HTN. Her 24 hour urine was normal. No complications in the course of this . Last BPP was 08/28. Fortino Delacruz Diagnosis Diagnosis: Primary Impression: 36 weeks gestation of Neda Beltrán MD R1 Aug 30, 2017 12:05
[2017-08-30 12:40] LABS: HEMATOCRIT 31.8 % (35.0-46.0); MEAN CELL VOLUME 82.1 FL (80.0-100.0); MEAN CORPUSCULAR HEMOGLOBIN 27.5 PG (27.0-34.0); MEAN CORPUSCULAR HGB CONC 33.5 % (32.0-36.0); PLATELET COUNT 298 TH/MM3 (150-450); RED BLOOD COUNT 3.87 MIL/MM3 (4.00-5.30); RED CELL DISTRIBUTION WIDTH 15.1 % (11.6-17.2); REVIEW FLAG FINAL
[2017-08-30 13:01] LABS: ALT (GPT) 17 U/L (10-53); ANION GAP 9 MEQ/L (5-15); AST (GOT) 13 U/L (15-37); BICARBONATE 20.7 MEQ/L (21.0-32.0); BLOOD UREA NITROGEN 8 MG/DL (7-18); CHLORIDE 107 MEQ/L (98-107); GLOMERULAR FILTRATION RATE 130 ML/MIN (>89); POTASSIUM 3.8 MEQ/L (3.5-5.1); SODIUM (NA) 137 MEQ/L (136-145); URIC ACID 5.2 MG/DL (2.6-6.0)
[2017-08-30 13:03] LABS: ALKALINE PHOSPHATASE 110 U/L (45-117); TOTAL BILIRUBIN ADULT 0.2 MG/DL (0.2-1.0)
[2017-08-30 13:21] LABS: BACTERIA, URINE RARE /hpf; BLOOD, URINE NEG (NEG); COMMENT (UR) CULT NOT INDICATED; CULTURE IF INDICATED CULT NOT INDICATED; GLUCOSE,URINE NEG (NEG); KETONE, URINE TRACE mg/dL (NEG); NITRITE,URINE NEG (NEG); SQUAMOUS EPITHELIAL CELL URINE 1 /hpf (0-5); URINE COLOR LIGHT-YELLOW (YELLW/STRAW)
[2017-08-30 13:22] VITALS: BP 97/39; PULSE 80
[2017-08-30 13:30] VITALS: BP 119/66; PULSE 71
--- NOTE | 2017-08-30 15:10 | HHI.PR ---
Subjective Remarks NST report Indications: 1. IUP at 36 weeks 2. Elevated blood pressures 3. Obesity 4. Lupus 5. History of preeclampsia heart rate in the 120s with moderate long-term variability, good accelerations, no decelerations noted. The category 1 heart rate tracing with reactive NST. Follow-up: Follow-up as clinically indicated Final diagnoses 1. IUP at 36 weeks 2. Elevated blood pressures with no evidence of preeclampsia today 3. Obesity 4. Lupus 5. History of preeclampsia Objective Vital Signs Date Time Temp Pulse Resp B/P (MAP) Pulse Ox O2 Delivery O2 Flow Rate FiO2 08/30/17 13:30 71 119/66 (83) 08/30/17 13:22 80 97/39 (58) 08/30/17 11:35 78 144/80 (101) Result Diagram: 08/30/17 1045 08/30/17 1045 Rach Delacurz MD Aug 30, 2017 15:10
[2017-09-06] MEDS ORDERED: ONDA1TAB17 PO (11:20)
== END 2017-08-30 13:55 | disposition home or self-care (01) ==
LOC: HOBED 10:14
DX: O26.93 Pregnancy related conditions, unspecified, third trimester (principal); R03.0 Elevated blood-pressure reading, without diagnosis of hypertension; M32.9 Systemic lupus erythematosus, unspecified; Z3A.36 36 weeks gestation of pregnancy
CPT/HCPCS: 59025; 80053; 81001; 82570; 84156; 84550; 85027; 96374; 99284; J7120

== ENCOUNTER 2017-09-10 14:35 | Emergency (ER) | payer MEDICAID ==
[~2017-09-10 14:35] MED LIST changes: -FERRTAB2 PO; +ONDA1TAB17 PO
--- NOTE | 2017-09-10 15:54 | PD ---
HPI Date Seen: Sep 10, 2017 (Alberto Montanez MD R2) Travel History International Travel<30 Days: No Contact w/Intl Traveler<30Days: No (Alberto Montanez MD R2) History of Present Illness HPI 26 yo at 38/0 weeks gestation with h/o pre-eclampsia in prior presenting with contractions/pelvic pressure since early this morning (painful every 3-5 mins currently, shortened interval compared to this morning) , decreased FM since Sunday, leaking fluid on Sunday evening, and thin whitish non-odorous vaginal discharge since Sunday. She has not had sex recently. She denies KHAN, vision changes, epigastric pain. Denies chest pain. Endorses mild shortness of breath for last couple days (has to yawn occasionally to catch breath, per patient). (Alberto Montanez MD R2) History Past Medical History Narrative Medical Pre-eclampsia in prior (Alberto Montanez MD R2) Obstetric History Obstetric History One induction at 34 weeks due to severe pre-eclampsia Other delivery vaginal at term (Alberto Montanez MD R2) Past Surgical History Surgical History: No Previous Surgery (Alberto Montanez MD R2) Family History Family History: Negative (Alberto Montanez MD) Social History Alcohol Use: No Tobacco Use: No Substance Abuse: No (Alberto Montanez MD R2) Allergies-Medications (Allergen,Severity, Reaction): Coded Allergies: Sulfa (Sulfonamide Antibiotics) (Verified Allergy, Severe, Hives, SOB, ) "BREAK OUT, CANT BREATHE" latex (Verified Allergy, Mild, Rash, 09/06/17) Home Meds Active Scripts Ondansetron (Ondansetron) 8 Mg Tab, 8 MG PO BID for Nausea/Vomiting, #20 TAB 0 Refills Prov:Ray Merrill MD 09/06/17 Reported Medications Calcium Carbonate (Antacid) (Tums) 500 Mg Chew, 500 MG CHEW QID Y for HEARTBURN , TAB 0 Refills 05/01/17 Review of Systems Except as stated in HPI: all other systems reviewed are Neg (Alberto Montanez MD R2) Physical Exam Narrative GENERAL: Well-nourished, well-developed patient. SKIN: Warm and dry. HEAD: Normocephalic and atraumatic. EYES: No scleral icterus. No injection or drainage. ENT: No nasal drainage noted. Mucous membranes pink. Airway patent. CARDIOVASCULAR: Regular rate and rhythm without murmurs, gallops, or rubs. RESPIRATORY: Breath sounds equal bilaterally. No accessory muscle use. ABDOMEN/GI: Abdomen soft, non-tender, no rebound, no guarding GENITOURINARY: Cervix: posterior Dilation: 3 cm Effacement: 70-80% Presentation: vertex Membranes: intact (AmniSure negative) Contractions: every 1-5 min FHT's: Category: 1 Baseline: 130 Reactive: Y Variability: moderate Decels: N EXTREMITIES: No cyanosis or edema. NEUROLOGICAL: Awake and alert. Motor and sensory grossly within normal limits. Normal speech. (Alberto Montanez MD R2) Data Data Vital Signs Reviewed: Yes Orders Orders Vital Signs (Adult) .ON ADMISSION (09/10/17 15:10) ^ Labor Status (09/10/17 15:10) Urinalysis - C+S If Indicated (09/10/17 15:10) ^ Hydration (09/10/17 15:10) Pamg-1 Test .ONCE (09/10/17 15:10) Us Ob Bpp Wo Nst (09/10/17 ) Group B Strep: Negative (Alberto Montanez MD R2) MDM Medical Record Reviewed: Yes Narrative Course / MDM 26-year-old at 38/0 weeks presenting with contractions, decreased FM, vaginal discharge, and suspected ROM #1 IUP Category 1 tracing, reassuring #2 decreased FM BPP - 8/8 Continue weekly testing per MFM #3 false labor Regular every 2-5 min, but no cervical change Machine Lay Out Worker on early labor signs and when to return to OB ED #4 vaginal discharge Thin and white per patient, no symptoms of itching or odor or vaginal pain Likely normal lochia; f/u with SECURITY OPERATIONS CENTER ANALYST (Alberto Montanez MD R2) Diagnosis Diagnosis: Primary Impression: False labor after 37 completed weeks of gestation Disposition: 01 DISCHARGE HOME Condition: Good Collaborating MD Comments Patient seen and evaluated with residents False labor with no cervical change Labor precautions given (Virginia Elliott MD) Alberto Montanez MD R2 Sep 10, 2017 15:54 Virginia Elliott MD Sep 10, 2017 17:49
[2017-09-10 16:03] LABS: BACTERIA, URINE RARE /hpf; BILIRUBIN, URINE NEG (NEG); BLOOD, URINE NEG (NEG); GLUCOSE,URINE NEG (NEG); KETONE, URINE 10 mg/dL (NEG); MUCUS URINE FEW /lpf (OCC); NITRITE,URINE NEG (NEG); PH, URINE 7.5 (5.0-8.5); SQUAMOUS EPITHELIAL CELL URINE 4 /hpf (0-5); URINE COLOR LIGHT-YELLOW (YELLW/STRAW); URINE LEUKOCYTE ESTERASE LARGE (NEG)
== END 2017-09-10 17:15 | disposition home or self-care (01) ==
LOC: HOBED 14:35
DX: O47.1 False labor at or after 37 completed weeks of gestation (principal); Z3A.38 38 weeks gestation of pregnancy
CPT/HCPCS: 59025; 76819; 81001; 84112

== ENCOUNTER 2017-09-17 13:59 | Inpatient (IN) | payer MEDICAID ==
[~2017-09-17] VITALS: Ht 157.5 cm; Wt 103.0 kg
[2017-09-17] VITALS (55 sets, daily range): BP systolic 95–140; BP diastolic 43–87; PULSE 57–172; RESP 16–20; TEMP 98; O2SAT 100
[2017-09-17] MEDS ORDERED: LACTATED RINGER'S 1000 ML INJ 1,000 ML IV PRN (15:06)
[2017-09-17] MEDS ORDERED: LACTATED RINGER'S 1000 ML INJ 1,000 ML IV SCH (15:06)
[2017-09-17] MEDS ORDERED: LIDOCAINE HCL 1% 50 ML VIAL I-DERMAL PRN (15:15)
[2017-09-17] MEDS ORDERED: MINERAL OIL 10 ML VIAL TOPICAL PRN (15:15)
[2017-09-17] MEDS ORDERED: ONDANSETRON HCL 4 MG/2 ML VIAL IV PUSH PRN (15:15)
[2017-09-17] MEDS ORDERED: SODIUM CHLORID 0.9% 500 ML INJ 500 ML IV PRN (15:15)
[2017-09-17] MEDS ORDERED: CITRIC ACID-SODIUM CITRATE LIQ 30 ML UDC PO SCH (15:15)
[2017-09-17] MEDS ORDERED: LIDOCAINE HCL 1% 50 ML VIAL INFIL PRN (15:15)
--- NOTE | 2017-09-17 15:20 | HHI.HP ---
History & Physical H&P HPI HPI Chief Complaint Leakage of Fluid Date Seen: Sep 17, 2017 Time Seen: 15:00 Travel History International Travel<30 Days: No Contact w/Intl Traveler<30Days: No History of Present Illness HPI 26-year-old at 39/0 weeks gestation presenting with possible rupture of membrane. She was seen in the clinic this morning where her cervix was 3-4 centimeters. A couple hours after the clinic visit, she noticed large amount of fluid leaking down her leg. This resolved, and then a couple hours later it happened again with a small amount of fluid. The fluid was clear. She also has been having contractions since yesterday evening before bedtime. At that time, there were 8 minutes apart. They've progressed in intensity and are now about 1- 2 minutes apart. She denies any vaginal bleeding. Endorses movement. Otherwise she feels well, denies chest pain, shortness of breath, dysuria. History (Limited) History Past Medical History Medical History: Denies Significant Hx Obstetric History Obstetric History History of Pre-eclampsia History of pre-term delivery at 35 weeks Low NAMRATA-A this Past Surgical History Surgical History: No Previous Surgery Family History Family History: Negative Social History Alcohol Use: No Tobacco Use: No Substance Abuse: No Allergies-Medications Allergies-Medications (Allergen,Severity, Reaction): Coded Allergies: Sulfa (Sulfonamide Antibiotics) (Verified Allergy, Severe, Hives, SOB, ) "BREAK OUT, CANT BREATHE" latex (Verified Allergy, Mild, Rash, 09/17/17) Home Meds Active Scripts Ondansetron (Ondansetron) 8 Mg Tab, 8 MG PO BID for Nausea/Vomiting, #20 TAB 0 Refills Prov:Rya Merrill MD 09/06/17 Reported Medications Calcium Carbonate (Antacid) (Tums) 500 Mg Chew, 500 MG CHEW QID Y for HEARTBURN , TAB 0 Refills 05/01/17 ROS Review of Systems Except as stated in HPI: all other systems reviewed are Neg Physical Exam Physical Exam Narrative GENERAL: Well-nourished, well-developed patient. SKIN: Warm and dry. HEAD: Normocephalic and atraumatic. EYES: No scleral icterus. No injection or drainage. ENT: No nasal drainage noted. Mucous membranes pink. Airway patent. CARDIOVASCULAR: Regular rate and rhythm without murmurs, gallops, or rubs. RESPIRATORY: Breath sounds equal bilaterally. No accessory muscle use. ABDOMEN/GI: Abdomen soft, non-tender, no rebound, no guarding GENITOURINARY: Cervix: mid-position Dilation: 5-6 cm Effacement: 70-80% Presentation: Vertex Membranes: Intact (AmniSure negative) Contractions: Every 2 minutes FHT's: Category: 1 Baseline: 130s Reactive: Y Variability: moderate Decels: N EXTREMITIES: No cyanosis or edema. NEUROLOGICAL: Awake and alert. Motor and sensory grossly within normal limits. Normal speech. Data Data Data Vital Signs Reviewed: Yes Orders Orders Admit To Inpatient (09/17/17 ) Code Status (09/17/17 15:06) Vital Signs (Adult) .Per protocol (09/17/17 15:06) Activity Oob [place] (09/17/17 15:06) Heart (09/17/17 15:06) Amnioinfusion (09/17/17 15:06) Urinary Catheter Management .ONCE (09/17/17 15:06) Diet Liquid (09/17/17 Dinner) Lactated Ringer's 1000 Ml Inj (Lr 1000 M (09/17/17 15:06) Lactated Ringer's 1000 Ml Inj (Lr 1000 M (09/17/17 15:06) Sodium Chlorid 0.9% 500 Ml Inj (Ns 500 M (09/17/17 15:15) Sodium Chlor 0.9% 1000 Ml Inj (Ns 1000 M (09/17/17 15:26) Lidocaine 1% Inj (50 Ml) (Xylocaine 1% I (09/17/17 15:15) Citric Acid-Sodium Citrate Liq (Bicitra (09/17/17 15:15) Ondansetron Inj (Zofran Inj) (09/17/17 15:15) Fentanyl Inj (Fentanyl Inj) (09/17/17 15:15) Fentanyl Inj (Fentanyl Inj) (09/17/17 15:15) Complete Blood Count With Diff (09/17/17 15:06) Hold Clot (09/17/17 15:06) Abo/Rh Blood Type (09/17/17 15:06) Urinalysis - C+S If Indicated (09/17/17 15:06) Drug Screen, Random Urine (09/17/17 15:06) Resp Oxygen Non Rebreathe Mask (09/17/17 ) ^ Epidural / Intrathecal Infus (09/17/17 15:06) Oxytocin 30 Units-500ml Premix (Pitocin (09/17/17 15:15) Lidocaine 1% Inj (50 Ml) (Xylocaine 1% I (09/17/17 15:15) Light Mineral Oil (Muri-Lube Oil) (09/17/17 15:15) Inpatient Certification (09/17/17 ) Group B Strep: Negative MDM MDM Narrative Course / MDM 26-year-old at 39/0 weeks gestation presenting in labor #1 IUP Category 1 tracing, reassuring #2 GBS negative #3 active labor Documented cervical change from 4 cm this morning to 5-6 cm at time of evaluation, patient having contractions every 1-3 minutes - Admit to labor and delivery - Routine labor care dw Alberto Zelaya MD R2 Sep 17, 2017 15:19
[2017-09-17] MEDS ORDERED: SODIUM CHLOR 0.9% 1000 ML INJ 1,000 ML IV PRN (15:26)
[2017-09-17] MEDS ORDERED: OXYTOCIN 30 UNITS-500ML PREMIX 500 ML IV ONE (15:30)
[2017-09-17] MEDS ORDERED: DIPHTH/TETANUS/ACEL PERTUSSIS (BOOSTER) 0.5 ML VIAL/PFS IM ONE (16:00)
[2017-09-17] MEDS ORDERED: MEASLES, MUMPS, RUBELLA VACCINE 0.5 ML VIAL SQ ONE (16:00)
[2017-09-17 16:12] LABS: BLOOD, URINE NEG (NEG); COMMENT (UR) CULT NOT INDICATED; CULTURE IF INDICATED CULT NOT INDICATED; GLUCOSE,URINE NEG (NEG); KETONE, URINE NEG (NEG); NITRITE,URINE NEG (NEG); PH, URINE 7.5 (5.0-8.5); SQUAMOUS EPITHELIAL CELL URINE 1 /hpf (0-5); URINE COLOR YELLOW (YELLW/STRAW)
[2017-09-17 16:13] LABS: AUTOMATED NEUTROPHIL # 7.9 TH/MM3 (1.8-7.7); BASOPHIL % 0.3 % (0.0-2.0); EOSINOPHIL # 0.3 TH/MM3 (0-0.4); EOSINOPHIL % 2.3 % (0.0-4.0); HEMATOCRIT 32.8 % (35.0-46.0); HEMO FLAGS DIFF FINAL; LYMPH % 23.9 % (9.0-44.0); LYMPHOCYTE # 2.9 TH/MM3 (1.0-4.8); MEAN CELL VOLUME 81.4 FL (80.0-100.0); MEAN CORPUSCULAR HEMOGLOBIN 27.4 PG (27.0-34.0); MEAN CORPUSCULAR HGB CONC 33.7 % (32.0-36.0); MONO % 9.4 % (0.0-8.0); NEUT % 64.1 % (16.0-70.0); PLATELET COUNT 276 TH/MM3 (150-450); RED BLOOD COUNT 4.03 MIL/MM3 (4.00-5.30); RED CELL DISTRIBUTION WIDTH 15.2 % (11.6-17.2); WHITE BLOOD COUNT 12.4 TH/MM3 (4.0-11.0)
--- NOTE | 2017-09-17 16:40 | PD.LABORPN ---
Subjective Subjective AROM with clear fluids by Dr. Montanez at 16:30. Patient doing well. Requested epidural. Objective Vital Signs Vital Signs Date Time Temp Pulse Resp B/P (MAP) Pulse Ox O2 Delivery O2 Flow Rate FiO2 09/17/17 16:15 18 09/17/17 16:13 90 128/80 (96) 09/17/17 16:10 93 09/17/17 16:05 94 09/17/17 16:00 98 09/17/17 15:30 85 Objective Pelvic Exam: Cervix: posterior Dilatation: 6cm Effacement: 70% Station: -3 Presentation: vertex Membranes: AROM w/ clear fluids Uterine Contractions: q2-q3min FHT's: Category: 1 Baseline: 130s Reactive: yes Variability: moderate Decels: no Weeks Gestation: 39 Gest Age Assessed Date: Sep 17, 2017 Gest Age Assessed Time: 15:00 Pt started active labor?: Yes Active labor start date: Sep 17, 2017 Active labor start time: 15:00 Medical induction of labor?: No Artificial rupture of membrane: Yes Artificial ROM date: Sep 17, 2017 Artifical ROM time: 16:30 Assessment/Plan Assessment and Plan 26-year-old at 39/0 weeks gestation in active labor #1 IUP Category 1 tracing, reassuring #2 GBS negative #3 active labor -AROM with clear fluids by Dr. Montanez -Making cervical change, contractions q2-3min - Routine labor care dw Vannessa Daugherty MD R1 Sep 17, 2017 16:40
[2017-09-17] MEDS ORDERED: fentaNYL 2MCG-BUPIV 0.125% INJ 100 ML ONE (17:03)
[2017-09-17] MEDS ORDERED: ePHEDrine/NS 25 MG/5 ML SYR ONE (17:04)
[2017-09-17] MEDS ORDERED: DO NOT ADMINISTER ANTICOAGULANTS PRN (18:15)
[2017-09-17] MEDS ORDERED: fentaNYL 2MCG-BUPIV 0.125% 100 ML EPIDURAL SCH (18:15)
[2017-09-17] MEDS ORDERED: ePHEDrine/NS 25 MG/5 ML SYR IV PUSH PRN (18:15)
[2017-09-17] MEDS ORDERED: NO SYSTEM NARCOTICS PRN (18:15)
--- NOTE | 2017-09-17 19:52 | PD.OB.DELI ---
Weeks gestation: 39 Gest age assessed date: Sep 17, 2017 Gest age assessed time: 15:00 Pt started active labor?: Yes Active labor start date: Sep 17, 2017 Active labor start time: 15:00 Medical induction of labor?: No Artificial rupture of membrane: Yes Artificial ROM date: Sep 17, 2017 Artifical ROM time: 16:30 Anesthesia: Epidural Episiotomy: None Vaginal Delivery: Normal, Spontaneous Presentation: Occiput anterior Nuchal Cord: x1 Delayed cord clamping (45 sec): Yes Shoulder Dystocia: Suprapubic pressure given Infant: Male Delivery date: Sep 17, 2017 Delivery time: 19:34 One Minute : 9 Five Minute : 9 Placenta: Spontaneous delivery Laceration: No lacerations (Multiple small abrasions in the vaginal wall) Additional Information w/ nuchal cord x1, suprapubic pressure applied, multiple small abrasions in vaginal wall Vannessa Aaron MD R1 Sep 17, 2017 19:51
[2017-09-17] MEDS ORDERED: ALUMINUM/MAGNESIUM/SIMETH 30 ML CUP PO PRN (20:00)
[2017-09-17] MEDS ORDERED: DOCUSATE SODIUM 50 MG/SENNA 8.6 MG TAB PO PRN (20:00)
[2017-09-17] MEDS ORDERED: ONDANSETRON ODT 4 MG TAB PO PRN (20:00)
[2017-09-17] MEDS ORDERED: SODIUM CHLORIDE 0.9% FLUSH 10 ML FLUSH IV FLUSH PRN (20:00)
[2017-09-17] MEDS ORDERED: OXYTOCIN 30 UNITS-500ML PREMIX 500 ML IV SCH (20:00)
[2017-09-17] MEDS ORDERED: BENZOCAINE 20% TOPICAL SPRAY 60 ML CAN TOPICAL PRN (20:00)
[2017-09-17] MEDS ORDERED: ZOLPIDEM TARTRATE 5 MG TAB PO PRN (20:00)
[2017-09-17] MEDS ORDERED: ACETAMINOPHEN 325 MG TAB PO PRN (20:00)
[2017-09-17] MEDS ORDERED: WITCH HAZEL 50%/GLYCERIN 12.5% 40 PAD JAR TOPICAL PRN (20:00)
[2017-09-17] MEDS ORDERED: SODIUM CHLORIDE 0.9% FLUSH 10 ML FLUSH IV FLUSH SCH (21:00)
[2017-09-17] MEDS: IBUPROFEN 600 MG TAB PO PRN (22:16)
[2017-09-18] MEDS: oxyCODONE/ACETAMINOPHEN 5 MG/325 MG TAB PO PRN ×5 (01:27→19:25)
[2017-09-18] MEDS: IBUPROFEN 600 MG TAB PO PRN ×3 (05:20→19:25)
[2017-09-18 08:30] VITALS: BP 119/72; PULSE 68; RESP 20; TEMP 97.4
[2017-09-18] MEDS ORDERED: DIPHTH/TETANUS/ACEL PERTUSSIS (BOOSTER) 0.5 ML VIAL/PFS IM ONE (09:15)
[2017-09-18] MEDS ORDERED: INFLUENZA VIRUS VACCINE (QUADRIVALENT) 0.5 ML SYR IM ONE (10:00)
--- NOTE | 2017-09-18 10:12 | HHI.OB ---
Subjective Remarks 26 year old female s/p at 39 wks gestation, PPD1. AFVSS. Patient reports she is feeling well. Bleeding is decreasing and pain is well- controlled. She is breast feeding and bonding well with baby. Ambulating without difficulties. She is tolerating a diet without nausea or vomiting. She has not had a bowel movement. She has not passed gas. Denies chest pain, dysuria , shortness of breath, or calf pain. Objective Vitals/I&O Vital Signs Date Time Temp Pulse Resp B/P (MAP) Pulse Ox O2 Delivery O2 Flow Rate FiO2 09/17/17 22:30 98.0 74 16 116/68 (84) 09/17/17 21:15 18 09/17/17 21:01 84 95/43 (60) 09/17/17 21:00 18 09/17/17 20:46 85 140/79 (99) 09/17/17 20:45 18 09/17/17 20:31 85 126/64 (84) 09/17/17 20:15 90 18 126/79 (95) 09/17/17 20:00 99 115/86 (96) 09/17/17 20:00 98.0 09/17/17 20:00 18 09/17/17 19:45 95 125/80 (95) 09/17/17 19:45 18 09/17/17 19:30 111 100 09/17/17 19:30 110 09/17/17 19:25 82 09/17/17 19:25 81 09/17/17 19:20 76 09/17/17 19:20 78 09/17/17 19:15 82 09/17/17 19:15 76 09/17/17 19:15 79 137/87 (104) 09/17/17 19:10 81 09/17/17 19:10 79 09/17/17 19:05 87 09/17/17 19:05 82 09/17/17 19:01 75 130/67 (88) 09/17/17 19:00 79 09/17/17 19:00 80 09/17/17 19:00 98.0 18 09/17/17 18:55 82 09/17/17 18:55 78 09/17/17 18:50 80 09/17/17 18:50 81 09/17/17 18:46 107/72 (84) 09/17/17 18:46 85 09/17/17 18:45 82 09/17/17 18:45 81 09/17/17 18:23 17 09/17/17 18:20 80 09/17/17 18:20 78 09/17/17 18:15 74 09/17/17 18:15 84 121/63 (82) 09/17/17 18:15 84 09/17/17 18:10 87 09/17/17 18:10 84 102/78 (86) 09/17/17 18:10 81 09/17/17 18:08 20 09/17/17 18:06 110 114/83 (93) 09/17/17 18:05 79 09/17/17 18:05 81 09/17/17 18:01 88 111/50 (70) 09/17/17 18:00 76 09/17/17 18:00 76 09/17/17 17:43 18 09/17/17 17:40 76 09/17/17 17:40 85 09/17/17 17:40 84 129/67 (87) 09/17/17 17:36 80 132/62 (85) 09/17/17 17:35 89 09/17/17 17:34 93 130/63 (85) 09/17/17 17:30 95 09/17/17 17:28 96 138/73 (94) 09/17/17 17:25 96 130/69 (89) 09/17/17 17:25 94 09/17/17 17:25 172 09/17/17 17:20 57 09/17/17 17:15 102 09/17/17 16:59 98.0 09/17/17 16:55 86 09/17/17 16:54 17 09/17/17 16:50 89 09/17/17 16:45 79 09/17/17 16:45 19 09/17/17 16:40 93 09/17/17 16:35 97 09/17/17 16:30 91 09/17/17 16:15 18 09/17/17 16:13 90 128/80 (96) 09/17/17 16:10 93 09/17/17 16:05 94 09/17/17 16:00 98 09/17/17 15:30 85 Objective Remarks GENERAL: Well-nourished, well-developed patient. CARDIOVASCULAR: Regular rate and rhythm without murmurs, gallops, or rubs. RESPIRATORY: Breath sounds equal bilaterally. No accessory muscle use. ABDOMEN/GI: Abdomen soft, non-tender. Fundus: Firm, non-tender at umbilicus. GENITOURINARY: Light to moderate bleeding. EXTREMITIES: No cyanosis or edema, non-tender, without signs of DVT. Medications and IVs Current Medications Medications (Trade) Dose Ordered Sig/Barbra Route Start Time Stop Time Status Last Admin Lactated Ringer's 1,000 ml @ 125 mls/hr Q8H IV 09/17/17 15:06 Lactated Ringer's 1,000 ml @ 3,000 mls/hr Q20M PRN IV 09/17/17 15:06 09/17/17 17:40 (Xylocaine 1% Inj (50 ml)) 0.1 ml UNSCH X1 PRN I-DERMAL 09/17/17 15:15 09/20/17 15:14 (Bicitra Liq) 30 ml FARM TRACTOR OPERATOR PO 09/17/17 15:15 09/21/17 15:14 (Zofran Inj) 4 mg Q6H PRN IV PUSH 09/17/17 15:15 (Xylocaine 1% Inj (50 ml)) 10 ml UNSCH X1 PRN INFIL 09/17/17 15:15 09/19/17 15:14 (Muri-Lube Oil) 10 ml UNSCH PRN TOPICAL 09/17/17 15:15 Miscellaneous Information No systemic narcotics to be given except... UNSCH PRN .XX 09/17/17 18:15 09/18/17 18:14 Miscellaneous Information DO NOT ADMINISTER ANY ANTICOAGUL... UNSCH PRN .XX 09/17/17 18:15 09/18/17 18:14 Fentanyl/ Bupivacaine HCl 100 ml @ 0 mls/hr TITRATE EPIDURAL 09/17/17 18:15 09/17/17 18:28 (ePHEDrine/NS 25 MG/5 ML SYR) 10 mg UNSCH PRN IV PUSH 09/17/17 18:15 09/18/17 18:14 (NS Flush) 2 ml BID IV FLUSH 09/17/17 21:00 (NS Flush) 2 ml UNSCH PRN IV FLUSH 09/17/17 20:00 (Tylenol) 650 mg Q4H PRN PO 09/17/17 20:00 (Motrin) 600 mg Q6H PRN PO 09/17/17 20:00 09/18/17 05:20 (Percocet 5-325 Mg) 1 tab Q4H PRN PO 09/17/17 20:00 09/18/17 05:19 (Americaine 20% Top Spr) 1 spray Q4H PRN TOPICAL 09/17/17 20:00 (Tucks Pads) 1 applic QID PRN TOPICAL 09/17/17 20:00 (Susie-Colace) 2 tab Q12H PRN PO 09/17/17 20:00 (Ambien) 5 mg HS PRN PO 09/17/17 20:00 (Mag-Al Plus Susp Liq) 15 ml Q8H PRN PO 09/17/17 20:00 (Zofran Odt) 4 mg Q6H PRN PO 09/17/17 20:00 Assessment/Plan Assessment and Plan 26 yo female s/p , PPD 1 - AFVSS - Continue routine care - Motrin PRN pain - Encourage OOB - Pelvic rest x 6 wks. - Contraception: Not discussed - Anticipate D/C tomorrow Vannessa Aaron MD R1 Sep 18, 2017 10:12
[2017-09-18 19:10] VITALS: BP 135/75; PULSE 85; RESP 16; TEMP 97.9
[2017-09-19] MEDS: IBUPROFEN 600 MG TAB PO PRN (01:15)
[2017-09-19] MEDS: oxyCODONE/ACETAMINOPHEN 5 MG/325 MG TAB PO PRN (01:16)
[2017-09-19] MEDS ORDERED: IBUP-232 PO (08:27)
--- NOTE | 2017-09-19 08:27 | HHI.DCPOC ---
Discharge Care Plan Diagnosis: (1) Normal vaginal delivery Report Symptoms to Your Doctor -Temperature above 100.5 degrees -Redness, of incision or excessive or foul smelling drainage -Unusual pain or calf pain -Increased vaginal bleeding -Painful or difficulty urinating -Feelings of extreme sadness or anxiety after 2 weeks Goals to Promote Your Health * To prevent worsening of your condition and complications * To maintain your health at the optimal level Directions to Meet Your Goals Take your medications as prescribed Follow your dietary instruction Follow activity as directed Ensure plenty of rest for recovery Drink fluids for hydration Keep your appointments as scheduled Take your immunizations and boosters as scheduled If your symptoms worsen call your PCP, if no PCP go to Urgent Care Center or Emergency Room Smoking is Dangerous to Your Health. Avoid second hand smoke Call the 24-hour crisis hotline for domestic abuse at Alberto Montanez MD R2 Sep 19, 2017 08:27
--- NOTE | 2017-09-19 08:31 | HHI.OB ---
Subjective Remarks 26 year old female s/p at 39 wks gestation, PPD 2. AFVSS. Patient reports she is feeling well. Bleeding is decreasing and pain is well- controlled. She is breast feeding and bonding well with baby. Ambulating without difficulties. She is tolerating a diet without nausea or vomiting. She has had a bowel movement. She has passed gas. Denies chest pain, dysuria, shortness of breath, or calf pain. Objective Vitals/I&O Vital Signs Date Time Temp Pulse Resp B/P (MAP) Pulse Ox O2 Delivery O2 Flow Rate FiO2 09/18/17 19:10 97.9 16 09/18/17 19:10 85 135/75 (95) 09/18/17 08:30 97.4 68 20 119/72 (88) Objective Remarks GENERAL: Well-nourished, well-developed patient. CARDIOVASCULAR: Regular rate and rhythm without murmurs, gallops, or rubs. RESPIRATORY: Breath sounds equal bilaterally. No accessory muscle use. ABDOMEN/GI: Abdomen soft, non-tender. Fundus: Firm, non-tender at umbilicus. GENITOURINARY: Light to moderate bleeding. EXTREMITIES: No cyanosis or edema, non-tender, without signs of DVT. Medications and IVs Current Medications Medications (Trade) Dose Ordered Sig/Barbra Route Start Time Stop Time Status Last Admin Lactated Ringer's 1,000 ml @ 125 mls/hr Q8H IV 09/17/17 15:06 Lactated Ringer's 1,000 ml @ 3,000 mls/hr Q20M PRN IV 09/17/17 15:06 09/17/17 17:40 (Xylocaine 1% Inj (50 ml)) 0.1 ml UNSCH X1 PRN I-DERMAL 09/17/17 15:15 09/20/17 15:14 (Bicitra Liq) 30 ml DIRECTOR OF INFECTION PREVENTION PO 09/17/17 15:15 09/21/17 15:14 (Zofran Inj) 4 mg Q6H PRN IV PUSH 09/17/17 15:15 (Xylocaine 1% Inj (50 ml)) 10 ml UNSCH X1 PRN INFIL 09/17/17 15:15 09/19/17 15:14 (Muri-Lube Oil) 10 ml UNSCH PRN TOPICAL 09/17/17 15:15 Fentanyl/ Bupivacaine HCl 100 ml @ 0 mls/hr TITRATE EPIDURAL 09/17/17 18:15 09/17/17 18:28 (NS Flush) 2 ml BID IV FLUSH 09/17/17 21:00 (NS Flush) 2 ml UNSCH PRN IV FLUSH 09/17/17 20:00 (Tylenol) 650 mg Q4H PRN PO 09/17/17 20:00 (Motrin) 600 mg Q6H PRN PO 09/17/17 20:00 09/19/17 01:15 (Percocet 5-325 Mg) 1 tab Q4H PRN PO 09/17/17 20:00 09/19/17 01:16 (Americaine 20% Top Spr) 1 spray Q4H PRN TOPICAL 09/17/17 20:00 (Tucks Pads) 1 applic QID PRN TOPICAL 09/17/17 20:00 (Susie-Colace) 2 tab Q12H PRN PO 09/17/17 20:00 (Ambien) 5 mg HS PRN PO 09/17/17 20:00 (Mag-Al Plus Susp Liq) 15 ml Q8H PRN PO 09/17/17 20:00 (Zofran Odt) 4 mg Q6H PRN PO 09/17/17 20:00 Assessment/Plan Assessment and Plan 26 yo female s/p , PPD 2 - AFVSS - Continue routine care - Motrin PRN pain - Encourage OOB - Pelvic rest x 6 wks. - Contraception: Doesn't want hormonal control due to concern for drying up her milk supply. 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 - D/C today Alberto Montanez MD R2 Sep 19, 2017 08:31
== END 2017-09-19 12:30 | disposition home or self-care (01) | DRG 775 ==
LOC: HOBED 13:59 → H2EA 15:16 → H1EA 21:32
PROVIDERS: ADMIT Obstetrics & Gynecology Obstetrics; ATTEND Obstetrics & Gynecology Obstetrics
PROC: 10E0XZZ Delivery of Products of Conception, External Approach (ICD-10-PCS; principal; 2017-09-17)
PROC: 10907ZC Drainage of Amniotic Fluid, Therapeutic from Products of Conception, Via Natural or Artificial Opening (ICD-10-PCS; 2017-09-17)
DX: O66.0 Obstructed labor due to shoulder dystocia (principal); O69.81X0 Labor and delivery complicated by cord around neck, without compression, not applicable or unspecified; O28.1 Abnormal biochemical finding on antenatal screening of mother; Z37.0 Single live birth; Z3A.39 39 weeks gestation of pregnancy; Z23 Encounter for immunization
CPT/HCPCS: 80307; 81001; 84112; 85025; 90686; 90715; J7120; Q2038